=== PATIENT | male | born 1960 | race Caucasian/White ===

== ENCOUNTER 2017-07-17 06:14 | Day surgery (SDC) | END 2017-07-17 10:55 | disposition home or self-care (01) ==

== ENCOUNTER 2018-05-21 15:59 | Emergency (ER) | payer OTHER ==
[~2018-05-21] VITALS: Ht 167.6 cm; Wt 58.8 kg
[~2018-05-21 15:59] MED LIST: RTPRO5
[2018-05-21 16:28] VITALS: Ht 167.6 cm; Wt 58.8 kg
[2018-05-21] MEDS ORDERED: SOD CHLORIDE 0.9% 1,000 ML IV STA (16:50)
[2018-05-21] MEDS ORDERED: KETOROLAC 30 MG INJ IV STA (16:50)
[2018-05-21] MEDS ORDERED: ONDANSETRON 4 MG INJ IV STA (16:50)
[2018-05-21] MEDS ORDERED: MAGN296S40 PO (18:16)
[2018-05-21] MEDS ORDERED: GLYC1SUP92 PR (18:16)
[2018-05-21 18:25] VITALS: BP 108/66; PULSE 82; RESP 18
--- NOTE | 2018-05-21 21:33 | ERD ---
ER Documentation Chief Complaint Chief Complaint Complains of abdominal pain x 2 days HPI During the patient's encounter translation services were utilized Language: Slovenian Source: In person 58-year-old gentleman who presents with several days of left lower quadrant abdominal pain, slightly decreased bowel movement. Pain is moderate, sharp and constant. He denies any flank pain, no dysuria urgency or frequency, no fevers or chills. No recent travel sick contacts or antibiotics. ROS All systems reviewed and are negative except as per history of present illness. Medications Home Meds Active Scripts Glycerin* (Glycerin (Adult)*) 1 Each Supp.rect, 1 EACH [place] DAILY PRN for CONSTIPATION, #10 SUPP.RECT Prov:JARRET MCDONNELL MD 05/21/18 Magnesium Citrate* (Magnesium Citrate*) 296 Ml Solution, 296 ML PO ONCE PRN for CONSTIPATION, #1 BOTTLE 1 Refill Prov:JARRET MCDONNELL MD 05/21/18 Reported Medications Albuterol Sulfate* (Proventil* Neb) 0.5 Ml Nebu 04/05/11 Allergies Allergies: Coded Allergies: No Known Allergy (Unverified , 04/05/11) PMhx/Soc History of Surgery: No Anesthesia Reaction: No Hx Neurological Disorder: No Hx Respiratory Disorders: Yes (asthma) Hx Cardiac Disorders: No Hx Psychiatric Problems: No Hx Miscellaneous Medical Probl: No Hx Alcohol Use: No Hx Substance Use: No Hx Tobacco Use: No Smoking Status: Never smoker FmHx Family History: No diabetes Physical Exam Vitals Vital Signs Date Temp Pulse Resp B/P (MAP) Pulse Ox O2 O2 Flow FiO2 Time Delivery Rate 05/21/18 98.9 82 18 108/66 98 Room Air 18:25 (80) 05/21/18 99.1 88 20 112/71 97 16:28 (85) Physical Exam General: Well developed, well nourished, no acute distress Head: Normocephalic, atraumatic. Eyes: Pupils equally reactive, EOM intact ENT: Moist mucous membranes Neck: Supple, no lymphadenopathy Respiratory: Lungs clear bilaterally, no distress Cardiovascular: RRR, no murmurs, rubs, or gallops Abdominal: Soft, mild tenderness left lower quadrant with voluntary guarding, no rebound : Bilateral descended testicles without swelling or focal tenderness, intact reflexes, no inguinal hernia MSK: No edema, no unilateral swelling, 5/5 strength Neurologic: Alert and oriented, moving all extremities, normal speech, no focal weakness, no cerebellar signs Skin: No rash Psych: Normal mood Result Diagram: 05/21/18 1700 05/21/18 1700 Results 24 hrs Laboratory Tests Test 05/21/18 17:00 05/21/18 17:20 White Blood Count 9.6 10^3/ul Red Blood Count 4.82 10^6/ul Hemoglobin 15.0 g/dl Hematocrit 43.1 % Mean Corpuscular Volume 89.4 fl Mean Corpuscular Hemoglobin 31.1 pg Mean Corpuscular Hemoglobin Concent 34.8 g/dl Red Cell Distribution Width 11.8 % Platelet Count 228 10^3/UL Mean Platelet Volume 10.0 fl Immature Granulocytes % 0.400 % Neutrophils % 62.5 % Lymphocytes % 25.2 % Monocytes % 8.0 % Eosinophils % 3.2 % Basophils % 0.7 % Nucleated Red Blood Cells % 0.0 /100WBC Immature Granulocytes # 0.040 10^3/ul Neutrophils # 6.0 10^3/ul Lymphocytes # 2.4 10^3/ul Monocytes # 0.8 10^3/ul Eosinophils # 0.3 10^3/ul Basophils # 0.1 10^3/ul Nucleated Red Blood Cells # 0.0 10^3/ul Sodium Level 139 mmol/L Potassium Level 4.2 mmol/L Chloride Level 102 mmol/L Carbon Dioxide Level 28 mmol/L Anion Gap 9 Blood Urea Nitrogen 17 mg/dl Creatinine 1.08 mg/dl Est Glomerular Filtrat Rate mL/min > 60 mL/min Glucose Level 94 mg/dl Calcium Level 9.1 mg/dl Total Bilirubin 0.5 mg/dl Direct Bilirubin 0.00 mg/dl Indirect Bilirubin 0.5 mg/dl Aspartate Amino Transf (AST/SGOT) 34 IU/L Alanine Aminotransferase (ALT/SGPT) 31 IU/L Alkaline Phosphatase 117 IU/L Total Protein 7.9 g/dl Albumin 4.4 g/dl Globulin 3.50 g/dl Albumin/Globulin Ratio 1.25 Lipase 98 U/L Urine Color STRAW Urine Clarity CLEAR Urine pH 5.0 Urine Specific [place] 1.006 Urine Ketones NEGATIVE mg/dL Urine Nitrite NEGATIVE mg/dL Urine Bilirubin NEGATIVE mg/dL Urine Urobilinogen NEGATIVE mg/dL Urine Leukocyte Esterase NEGATIVE [place]/ul Urine Hemoglobin NEGATIVE mg/dL Urine Glucose NEGATIVE mg/dL Urine Total Protein NEGATIVE mg/dl Current Medications Medications Dose Sig/Debra Start Time Status Last (Trade) Ordered Route PRN Stop Time Admin Dose Reason Admin Sodium 1,000 ml @ Q1H STAT 05/21/18 DC 05/21/18 Chloride 1,000 mls/hr IV 16:50 05/21/18 17:22 17:49 Ondansetron 4 mg ONCE STAT 05/21/18 DC 05/21/18 HCl (Zofran IV 16:50 05/21/18 17:21 Inj) 16:51 Ketorolac 30 mg ONCE STAT 05/21/18 DC 05/21/18 Tromethamine IV 16:50 05/21/18 17:22 (Toradol) 16:51 Procedures/MDM EKG, MONITORS, & DIAGNOSTIC IMAGING: CT ap IMPRESSION: Moderate colonic stool, rule out fecal impaction. Diverticula sigmoid colon without CT evidence of acute diverticulitis. Fatty liver. LAB INTERPRETATION: I reviewed the laboratory testing and it shows no evidence of acute process MEDICAL DECISION MAKING: Left lower quadrant abdominal pain for 2 days raise the concern for acute diverticulitis. The patient does have slightly decreased bowel movements, consider possible constipation. No significant risk factors for bowel obstruction, no signs or symptoms concerning for ureterolithiasis or acute testicular process. Given the focal tenderness CT to rule out acute diverticulitis or complications would be reasonable. ER COURSE: * Laboratory testing and diagnostic imaging is otherwise unrevealing. The patient is much improved with pain control medication * The patient CT does suggest constipation. A trial of bowel regimen would be most appropriate CONSULTATION: None DISPOSITION PLAN: The patient does not have an identifiable emergent medical condition that warrants inpatient hospitalization at this time. The patient is deemed safe for discharge with outpatient follow-up. We discussed follow up with the patient's primary care doctor within 24 to 48 hours as needed. We also discussed return to the emergency room for worsening symptoms or worsening condition. Outpatient referral: None required Discharge Medications: Magnesium citrate, glycerin suppository Departure Diagnosis: Primary Impression: LLQ abdominal pain Additional Impression: Constipation Constipation type: unspecified constipation type Qualified Codes: K59.00 - Constipation, unspecified Condition: Stable Patient Instructions: Constipation (Adult) Referrals: [facility] Usted se watt hecho un examen mdico de control que le indica que no est en rk c ondicin que requiera tratamiento urgente en el Departamento de Emergencia. Un estudio ms profundo y el tratamiento de sheridan condicin pueden esperar sin ningn riesgo hasta que usted sea atendida/o en el consultorio de sheridan mdico o rk clnica. Es responsabilidad suya arreglar rk rimma para el seguimiento del margarita. MANEJO DE CONDICIONES NO URGENTES EN EL FUTURO 1) Si usted tiene un mdico de atencin primaria: Usted debera llamar a sheridan mdico de atencin primaria antes de venir al departamento de emergencia. Despus de las horas de consultorio, sheridan doctor o sheridan asociado/a est disponible por telfono. El mdico o enfermero de britney en el servicio telefnico puede asesorarle por yung medio para atender el problema, o margarita contrario se puede programar rk rimma. 2) Si usted no tiene un mdico de atencin primaria: Llame al mdico o clnica de referencia que aparece abajo aubrie las horas de consultorio para hacer rk rimma para que le vean. CLINICAS: [facility] [phone] [facility] [phone] [address] [facility] [phone] [facility]. [facility] [phone] [facility]. [place] [id number] [phone] [facility]. [phone] [facility] () Usted se watt hecho un examen mdico de control que le indica que no est en rk condicin que requiera tratamiento urgente en el Departamento de Emergencia. Un estudio ms profundo y el tratamiento de sheridan condicin pueden esperar sin ningn riesgo hasta que usted sea atendida/o en el consultorio de sheridan mdico o rk clnica. Es responsabilidad suya arreglar rk rimma para el seguimiento del margarita. MANEJO DE CONDICIONES NO URGENTES EN EL FUTURO 1) Si usted tiene un mdico de atencin primaria: Usted debera llamar a sheridan mdico de atencin primaria antes de venir al departamento de emergencia. Despus de las horas de consultorio, sheridan doctor o sheridan asociado/a est disponible por telfono. El mdico o enfermero de britney en el servicio telefnico puede asesorarle por yung medio para atender el problema, o margarita contrario se puede programar rk rimma. 2) Si usted no tiene un mdico de atencin primaria: Llame al mdico o condado institucions de referencia que aparece abajo aubrie las horas de consultorio para hacer rk rimma para que le vean. SI USTED NO PUEDE PAGAR PARA ELISA UN MEDICO puede ir a: [facility] [address] [place] [address] [facility] [address] [place] [address] [facility] [address] [place] [address] [facility] [address] [place], [place] [id number] Additional Instructions: Llame al doctor nombrado abajo (Referral Sources) MAANA y anthony rk RIMMA PARA DENTRO DE RK SEMANA. Dgale a la secretaria que nosotros le instruimos hacer esta rimma.Avise o llame si sheridan condicin se empeora antes de la rimma. JARRET MCDONNELL MD May 21, 2018 21:33
== END 2018-05-21 18:25 | disposition home or self-care (01) ==
LOC: E/R 15:59
DX: K59.00 Constipation, unspecified (principal); J45.909 Unspecified asthma, uncomplicated
CPT/HCPCS: 36415; 74176; 80053; 81003; 83690; 85025; 96374; 96375; 99285; J1885; J2405; J7030

== ENCOUNTER 2018-07-10 08:26 | Emergency (ER) | payer OTHER ==
[~2018-07-10] VITALS: Ht 160 cm; Wt 62.0 kg
[~2018-07-10 08:26] MED LIST changes: +GLYC1SUP92 PR; +MAGN296S40 PO
[2018-07-10 08:30] VITALS: Ht 160 cm; Wt 62.0 kg
[2018-07-10] MEDS ORDERED: LIDOCAINE/MYLANTA 40 ML BTL PO STA (08:58)
[2018-07-10] MEDS ORDERED: BELLADONNA/PHENOBARBITAL TAB PO STA (08:58)
[2018-07-10] MEDS ORDERED: ONDANSETRON (ODT) 4 MG TAB ODT STA (08:58)
[2018-07-10] MEDS ORDERED: FAMOTIDINE 20 MG TAB PO STA (08:58)
[2018-07-10] MEDS ORDERED: MINERAL OIL 133 ML ENEMA PR ONE (09:00)
--- NOTE | 2018-07-10 09:04 | ERD ---
ER Documentation Chief Complaint Chief Complaint pt is bib self with c/o abd pain starting a few days ago HPI This is a 58-year-old male with a past medical history of asthma and chronic abdominal pain/constipation who is presenting with exacerbation of his chronic pain. The patient endorses chronic daily constipation. He endorses having to strain with bowel movements. He endorses a fullness and bloating. His aching cramping pain is mostly in the left lower quadrant. He does not have a history of diverticulosis. He does not endorse any diarrhea. He does not endorse any black or bloody or tarry stools. The patient has been prescribed glycerin suppositories and mag citrate in the past. The patient has been evaluated by his primary care doctor and reportedly given MiraLAX as well. The patient is currently out of these medications. The patient does not endorse nausea or vomiting. He does not endorse any dysuria or hematuria or urgency or frequency. He has not been sick otherwise. He denies any fever or chills. He has not had any cold or flulike symptoms. The patient has had no headache or vision changes. The patient does not endorse neck or back pain. The patient denies lightheadedness or dizziness. The patient has had no chest pain or trouble breathing. The patient has had no focal deficits. The patient has had no weakness or numbness or tingling to the face or extremities. ROS All systems reviewed and are negative except as per history of present illness. Medications Home Meds Reported Medications Hansen-3 Acid Ethyl Esters (Lovaza) 1 Gm Capsule, 1 GM PO BID, CAP 07/10/18 Omeprazole* (Omeprazole*) 10 Mg Capsule.dr, 10 MG PO DAILY, #30 CAP 07/10/18 Discontinued Reported Medications Albuterol Sulfate* (Proventil* Neb) 0.5 Ml Nebu 04/05/11 Discontinued Scripts Glycerin* (Glycerin (Adult)*) 1 Each Supp.rect, 1 EACH [place] DAILY PRN for CONSTIPATION, #10 SUPP.RECT Prov:JARRET MCDONNELL MD 05/21/18 Magnesium Citrate* (Magnesium Citrate*) 296 Ml Solution, 296 ML PO ONCE PRN for CONSTIPATION, #1 BOTTLE 1 Refill Prov:JARRET MCDONNELL MD 05/21/18 Allergies Allergies: Coded Allergies: No Known Allergy (Unverified , 4/23/19) PMhx/Soc History of Surgery: No Anesthesia Reaction: No Hx Neurological Disorder: No Hx Respiratory Disorders: Yes (asthma) Hx Cardiac Disorders: No Hx Psychiatric Problems: No Hx Miscellaneous Medical Probl: Yes (Constipation) Hx Alcohol Use: No Hx Substance Use: No Hx Tobacco Use: No Physical Exam Vitals Vital Signs Date Temp Pulse Resp B/P (MAP) Pulse Ox O2 O2 Flow FiO2 Time Delivery Rate 07/10/18 97.7 74 16 124/77 98 08:30 (93) Physical Exam Const: No apparent distress, well-developed, well-nourished Head: Normocephalic, Atraumatic Eyes: Normal Conjunctiva. Extraocular movements grossly intact. ENT: Normal External Ears, Nose and Mouth. Moist mucous membranes. Neck: Full range of motion. No meningismus. Resp: Clear to auscultation bilaterally, No wheezes, rales or rhonchi Cardio: Regular rate and rhythm. No murmurs, rubs or gallops Abd: Soft, non distended. Mild left lower quadrant discomfort with no exquisite tenderness. No rebound or guarding. Normal bowel sounds Skin: No petechiae or rashes Back: No midline tenderness. No CVA tenderness Ext: No cyanosis, or edema Neur: Awake and alert, oriented 4. Cranial nerves intact. No facial droop. Normal strength, sensation and coordination. Psych: Normal Mood and Affect Result Diagram: 07/10/1814 07/10/1814 Results 24 hrs Laboratory Tests Test 07/10/18 09:12 07/10/18 09:14 Urine Color STRAW Urine Clarity CLEAR Urine pH 8.0 Urine Specific [place] 1.005 Urine Ketones NEGATIVE mg/dL Urine Nitrite NEGATIVE mg/dL Urine Bilirubin NEGATIVE mg/dL Urine Urobilinogen NEGATIVE mg/dL Urine Leukocyte Esterase NEGATIVE [place]/ul Urine Hemoglobin NEGATIVE mg/dL Urine Glucose NEGATIVE mg/dL Urine Total Protein NEGATIVE mg/dl White Blood Count 6.9 10^3/ul Red Blood Count 5.11 10^6/ul Hemoglobin 16.1 g/dl Hematocrit 46.2 % Mean Corpuscular Volume 90.4 fl Mean Corpuscular Hemoglobin 31.5 pg Mean Corpuscular Hemoglobin Concent 34.8 g/dl Red Cell Distribution Width 12.1 % Platelet Count 262 10^3/UL Mean Platelet Volume 10.0 fl Immature Granulocytes % 0.400 % Neutrophils % 65.5 % Lymphocytes % 23.3 % Monocytes % 6.0 % Eosinophils % 3.9 % Basophils % 0.9 % Nucleated Red Blood Cells % 0.0 /100WBC Immature Granulocytes # 0.030 10^3/ul Neutrophils # 4.5 10^3/ul Lymphocytes # 1.6 10^3/ul Monocytes # 0.4 10^3/ul Eosinophils # 0.3 10^3/ul Basophils # 0.1 10^3/ul Nucleated Red Blood Cells # 0.0 10^3/ul Sodium Level 144 mmol/L Potassium Level 4.4 mmol/L Chloride Level 104 mmol/L Carbon Dioxide Level 32 mmol/L Anion Gap 8 Blood Urea Nitrogen 12 mg/dl Creatinine 0.94 mg/dl Est Glomerular Filtrat Rate mL/min > 60 mL/min Glucose Level 92 mg/dl Calcium Level 10.0 mg/dl Total Bilirubin 0.9 mg/dl Direct Bilirubin 0.00 mg/dl Indirect Bilirubin 0.9 mg/dl Aspartate Amino Transf (AST/SGOT) 25 IU/L Alanine Aminotransferase (ALT/SGPT) 25 IU/L Alkaline Phosphatase 127 IU/L Total Protein 8.0 g/dl Albumin 4.6 g/dl Globulin 3.40 g/dl Albumin/Globulin Ratio 1.35 Lipase 125 U/L Current Medications Medications Dose Sig/Debra Start Time Status Last (Trade) Ordered Route PRN Stop Time Admin Dose Reason Admin Famotidine 20 mg ONCE STAT 07/10/18 DC 07/10/18 (Pepcid) PO 08:58 09:29 07/10/18 09:00 40 ml ONCE STAT 07/10/18 DC 07/10/18 Miscellaneous PO 08:58 09:29 Medication 07/10/18 09:00 (Gi Cocktail (2)) Belladonna/ 2 tab ONCE STAT 07/10/18 DC 07/10/18 Phenobarbital PO 08:58 09:29 () 07/10/18 09:00 Ondansetron 4 mg ONCE STAT 07/10/18 DC 07/10/18 HCl (Zofran ODT 08:58 09:29 Odt) 07/10/18 09:00 Mineral Oil 133 ml ONCE ONCE 07/10/18 DC 07/10/18 (Fleet MO 09:00 09:41 Mineral Oil 07/10/18 09:01 Enema) Procedures/MDM MDM The patient's presentation warrants further investigation. Previous medical records, if available, were reviewed. LABS The patient's laboratory testing was obtained and reviewed. No emergent treatment was required unless described below. CBC: No E/o systemic infection or severe anemia or thrombocytopenia Chemistry: No E/o severe acidosis or alkalosis or renal failure or liver disease or diabetic ketoacidosis Lipase: No E/o pancreatitis Urine: No E/o acute infection or hematuria IMAGING Imaging and Radiology interpretation reviewed. KUB FINDINGS: The bowel gas pattern is unremarkable. No organomegaly or discrete mass is identified. Phleboliths are seen within the right pelvis. Mild degenerative enthesopathy of the lumbar spine is noted along with a mild dextroscoliotic curve. The lung bases are clear. IMPRESSION: 1. Nonspecific bowel gas pattern. 2. Calcifications are seen within the right pelvis which likely represent phleboliths. 3. Mild dextroscoliotic curve to the lumbar spine with mild degenerative enthesopathy. Electronically viewed and signed by Varsha Zamora Physician on 07/10/2018 09:47 TREATMENT/DISPOSITION The patient presents with abdominal pain. He reports that this feels like his previous episodes of constipation. The patient was treated with Pepcid, Zofran, a GI cocktail and a Fleet mineral oil enema. The patient endorses significant relief after the enema. I do suspect constipation as the etiology of his symptoms. The patient's KUB reveals a nonspecific bowel gas pattern. I do not see any evidence of small bowel obstruction. The patient does not have any evidence of peritonitis. The patient does not have clinical symptoms concerning for mesenteric ischemia or ischemic colitis. The patient does not have right upper quadrant tenderness, and I have low suspicion for gallstones, cholecystitis or biliary colic. The patient does not have any epigastric pain. I have low suspicion for gastritis, PUD or GERD. The patient does not have left upper quadrant tenderness. I have low suspicion for pancreatitis. The patient does not have any right lower quadrant tenderness, or periumbilical tenderness. I have low suspicion for appendicitis. The patient does not have suprapubic tenderness. I have decreased suspicion for cystitis. The patient has not had any black or bloody or tarry stools, and I have low suspicion for diverticulosis or diverticulitis. The patient does not have any flank tenderness. The patient does not have gross hematuria. I have decreased suspicion for nephrolithiasis or renal colic. The patient does not have any palpable pulsatile mass or severe abdominal pain radiating to the back. I have low suspicion for aortic aneurysm, dissection or rupture. DISCHARGE Upon reevaluation of the patient, symptoms have improved. No emergent diagnoses were identified. At this time, I feel that the patient stable for discharge. The patient was instructed to follow-up with a primary care physician in 1-3 days. The patient will be given strict precautions with which to return to the emergency department. Prescriptions: MiraLAX The patient's blood pressure was elevated at greater than 120/80 while in the e mergency department. The patient was otherwise stable with no evidence of hypertensive urgency or emergency. The patient does not require admission for blood pressure control. I have discussed with the patient the risks of hypertension. I have instructed the patient to return to the ER for any new or worsening symptoms including chest pain, shortness of breath, headache, blurred vision, confusion, nausea, vomiting or LOC. I have advised the patient to follow up with the primary care physician for outpatient monitoring and treatment for hypertension in 1-3 days. Disclaimer: Inadvertent spelling and grammatical errors are likely due to EHR/dictation software use and do not reflect on the overall quality of patient care. Note that the electronic time recorded on this note does not necessarily reflect the actual time of the patient encounter. Departure Diagnosis: Primary Impression: Constipation Constipation type: unspecified constipation type Qualified Codes: K59.00 - Constipation, unspecified Additional Impression: LLQ abdominal pain Condition: Stable Patient Instructions: Constipation (Adult), Abdominal Pain Additional Instructions: Thank you for for coming to [facility] for your care today. Please ask your nurse or provider if you have questions about your care today and do not leave until all your questions have been answered. Please use any medications given as directed and follow-up with your doctor (or the doctor you were referred to) in the next 1-3 days. If you do not have a primary care doctor you may follow up at the [facility] or [facility] (listed below). You may also use motrin and tylenol as needed for fever and/or pain unless i nstructed otherwise by your provider or nurse. Indications for more urgent follow-up have been discussed, but you may return to the Emergency Department at ANY time for any worrisome or worsening symptoms. If you have abdominal pain, please know that no test or exam you received is perfect and you should follow up within 8 hours for continued pain. If you had any imaging studies today, such as an X-Ray or CT Scan, these studies will be reviewed later by a radiologist. You will be called if there are important findings that were not identified today, so make sure the contact information you provided at registration is correct. If you received any narcotic pain control medicine today, such as Vicodin, Morphine or Dilaudid, your coordination and judgment may be affected for a number of hours. Please do not drive or operate heavy machinery, and you may want someone to assist you at home. If you were given a prescription for narcotic medication, be aware that it is very addictive- use sparingly and only if necessary. PLEASE SEEK FURTHER EVALUATION AND MANAGEMENT AT YOUR DOCTORS OFFICE WITHIN THE NEXT 1-3 DAYS. IT IS YOUR RESPONSIBILITY TO MAKE AN APPOINTMENT FOR FOLOW-UP CARE. IF YOU HAVE A PRIMARY DOCTOR, PLEASE CALL THEIR OFFICE TO SCHEDULE AN APPOINTMENT FOR FOLLOW UP. IF YOU DO NOT HAVE A PRIMARY DOCTOR YOU CAN CALL OUR PHYSICIAN REFERRAL HOTLINE AT IF YOU CAN NOT AFFORD TO SEE A PHYSICIAN YOU CAN CHOSE FROM THE FOLLOWING [facility] CLINICS: [facility] [address] [facility]. [facility] [address] [facility] [address] [facility]. [facility] [address] [facility] [address] [facility]. [facility]. [address] LETITIA TAN MD Jul 10, 2018 09:04
[2018-07-10] MEDS ORDERED: OMEP10CA4 PO (10:18)
[2018-07-10] MEDS ORDERED: OMEG1CAP2 PO (10:19)
[2018-07-10] MEDS ORDERED: POLY17PO6 PO (10:28)
[2018-07-10 10:55] VITALS: BP 119/85; PULSE 64; RESP 18
== END 2018-07-10 10:55 | disposition home or self-care (01) ==
LOC: E/R 08:26
DX: K59.00 Constipation, unspecified (principal); J45.909 Unspecified asthma, uncomplicated
CPT/HCPCS: 36415; 74018; 80053; 81003; 83690; 85025